=== PATIENT | male | born 1960 ===

== ENCOUNTER 2024-01-24 06:29 | Day surgery (SDC) | payer OTHER, SELFPAY ==
[2024-01-24 13:18] VITALS: BMI 23.9
[2024-01-24 13:19] VITALS: BMI 23.9
[2024-01-24 13:20] VITALS: BP 151/93
[2024-01-24 16:15] VITALS: BP 116/89
[2024-01-24 16:30] VITALS: BP 129/87
[2024-01-24 16:45] VITALS: BP 133/87
== END 2024-01-24 17:08 | disposition home or self-care (01) ==
LOC: GI 06:29
PROVIDERS: ATTENDING PHYSICIAN Internal Medicine Gastroenterology
DX: C7A.8 Other malignant neuroendocrine tumors (principal); K64.9 Unspecified hemorrhoids; D37.5 Neoplasm of uncertain behavior of rectum; K62.89 Other specified diseases of anus and rectum; Z98.890 Other specified postprocedural states; K29.50 Unspecified chronic gastritis without bleeding
CPT/HCPCS: 45349; 45341; 43237; 43239; 88305; 88341; 88342